=== PATIENT | female | born 1965 | race Caucasian/White ===

== ENCOUNTER → 2016-09-21 | Outpatient (CLI) | payer OTHER | LOC: EMI 13:30 | DX: M54.12 Radiculopathy, cervical region (principal); M54.2 Cervicalgia; M50.321 Other cervical disc degeneration at C4-C5 level; M99.71 Connective tissue and disc stenosis of intervertebral foramina of cervical region | CPT/HCPCS: 72141 ==

== ENCOUNTER 2020-06-06 17:48 | Emergency (ER) | payer OTHER | END 2020-06-06 18:56 | disposition left against medical advice (07) | LOC: ER1 17:48 | DX: R53.1 Weakness (principal); R11.0 Nausea; Z53.21 Procedure and treatment not carried out due to patient leaving prior to being seen by health care provider ==

== ENCOUNTER → 2020-06-15 | Outpatient (CLI) | payer OTHER | LOC: KOH-I 06-14 08:00 | DX: M54.2 Cervicalgia (principal); M47.812 Spondylosis without myelopathy or radiculopathy, cervical region; M48.02 Spinal stenosis, cervical region; M50.221 Other cervical disc displacement at C4-C5 level | CPT/HCPCS: 72141 ==

== ENCOUNTER 2021-12-13 04:14 | Emergency (ER) | payer OTHER ==
[2021-12-13] MEDS ORDERED: AMOXICILLIN875 MG PO (05:40)
== END 2021-12-13 05:52 | disposition home or self-care (01) ==
LOC: ER1 04:14
DX: K04.7 Periapical abscess without sinus (principal); F17.200 Nicotine dependence, unspecified, uncomplicated
CPT/HCPCS: 99283; J1885

== ENCOUNTER 2022-01-17 07:05 | Emergency (ER) | payer OTHER ==
[~2022-01-17 07:05] MED LIST: AMOXICILLIN875 MG PO
[2022-01-17] MEDS ORDERED: AMOXICILLIN500 M1 PO (08:22)
[2022-01-17] MEDS ORDERED: NAPROSYN500 MG PO (08:22)
== END 2022-01-17 08:30 | disposition home or self-care (01) ==
LOC: ER1 07:05
DX: K02.9 Dental caries, unspecified (principal); K05.10 Chronic gingivitis, plaque induced; K03.81 Cracked tooth; F17.200 Nicotine dependence, unspecified, uncomplicated
CPT/HCPCS: 99283